=== PATIENT | female | born 1965 | race Caucasian/White ===

== ENCOUNTER → 2021-09-22 12:44 | Outpatient (CLI) | payer OTHER, SELFPAY ==
--- NOTE | 2021-09-22 12:45 | CA_ITS ---
APPROVED REPORT EXAM: Comprehensive 2D, Doppler, and color-flow Echocardiogram [facility] Operator: Jackelyn Lyon, RT(R) Ht: 5 ft 7 in Wt: 224lbs BSA: 2.12 BP: 166/79 mmHg Indications: pre op clearance for liposuction, new murmur heard, smoker, Abn EKG. 2D Dimensions LVOT 1.98 cm (M/F) 1.5-2.5 LA Volume 36.20 mL LA Volume Index 17.07 mL/m2 (M/F) 16-34 M-Mode Dimensions RVDd 3.74 cm (0.9-2.6) LA Diam 4.13 cm (1.9-4.0) LVDd 4.08 cm (3.5-5.7) Ao Diam 2.51 cm (2.0-3.7) LVDs 2.97 cm (3.5-5.7) IVSd 1.36 cm (0.6-1.1) PWd 0.89 cm (0.6-1.1) EF (Teich) 53.40% FS 27.20% EDV (Teich) 73.40 mL ESV (Teich) 34.20 mL LV Diastology E Decel Time 267.00 (160-240 msec) E/A Ratio 0.9 MED E' 6.60 (< 7 cm/sec) E'/MED E' Ratio 13.80 (>14) LAT E' 9.20 (<10 cm/sec) E/LAT E' Ratio 9.90 (>14) Aortic Valve LVOT Max 155.00 (70-110 cm/s) LVOT VTI 33.49 cm AoV Peak Antonio. 240.00 (50-130 cm/s) AO Peak GR. 23.00 mmHg AO Mean GR. 11.30 (<5 mmHg) AO VTI 49.94 (18-25 cm) AIDA (VTI) 2.06 (2.5-4.5 cm2) Mitral Valve MV E Max Antonio. 91.00 (40-130 cm/s) MV A Velocity 102.00 (40-130 cm/s) E/A Ratio 0.89 MV Decel. Time 267.00 (160-240 ms) MV PHT 78.00 ms Left Ventricle Left atrium is mildly enlarged, left ventricle is normal size, mild concentric left ventricular hypertrophy, estimated ejection fraction 55% with no regional wall motion abnormality, grade 1 diastolic dysfunction seen without tissue Doppler evidence of raise left atrial pressure. Right Ventricle Right atrium and right ventricle are mildly enlarged with normal contractility. Aortic Valve Aortic valve is thickened and calcified mean gradient across valve is 13 mmHg, valve area is 1.7 cm represents mild aortic stenosis, there is no significant aortic insufficiency. Mitral Valve Mitral valve leaflets are minimally thickened, there is mild mitral regurgitation. Tricuspid Valve Tricuspid valve is grossly normal, there is mild tricuspid regurgitation, tricuspid regurgitation velocity is inadequate for calculation of the right ventricular systolic pressure. Pulmonic Valve Pulmonic valve is poorly visualized. Great Vessels Aortic root is normal size. Inferior vena cava is poorly visualized. Pericardium No significant pericardial effusion noted. Conclusion 1. Biatrial enlargement, normal left ventricular size, preserved left ventricular systolic function, estimated ejection fraction 55% with no regional wall motion abnormality, grade 1 diastolic dysfunction seen without tissue Doppler evidence of raise left atrial pressure. 2. Mildly enlarged right ventricle with normal contractility. 3. Thickened and calcified aortic valve with mild aortic stenosis, valve area is 1.7 cm??? 4. No significant pericardial effusion noted. 5. Inferior vena cava is poorly visualized. Electronically signed by : Jimmie Albright MD 09/22/2021 15:27:11
== END ==
PROVIDERS: PCP Family Medicine; Visit Provider Nurse Practitioner
DX: Z01.810 Encounter for preprocedural cardiovascular examination (principal); R01.1 Cardiac murmur, unspecified; R94.31 Abnormal electrocardiogram [ECG] [EKG]
CPT/HCPCS: 93306